=== PATIENT | female | born 1975 | race Caucasian/White ===

== ENCOUNTER 2020-06-14 21:34 | Emergency (ER) | payer OTHER ==
[2020-06-14 22:23] LABS: BASOPHIL 0.6 % (0-2); EOSINOPHIL 2.4 % (0-5); HCT 39.1 % (37.0-47.0); HGB 12.9 g/dl (12.5-16.0); LYMPHOCYTE 31.1 % (15-48); MCH 31.8 pg (25.0-31.0); MCV 96.3 fL (78.0-100.0); MONOCYTE 6.3 % (0-12); MPV 10.6 fL (6.0-9.5); NEUTROPHIL 59.3 % (41-80); NRBC 0; PLT 292 K/uL (150-400); RBC 4.06 M/uL (4.20-5.40); RDW 12.7 % (11.5-14.0); WBC 9.1 K/uL (4.0-10.5)
[2020-06-14 22:34] LABS: INR 1.03 (0.9-1.2); PROTHROMBIN TIME 12.8 SECONDS (11.4-13.6); PTT 25.5 SECONDS (22.2-34.7)
[2020-06-14 22:44] LABS: ALBUMIN 3.2 g/dL (3.4-5.0); BILIRUBIN - TOTAL 0.2 mg/dL (0.2-1.0); BUN/CREAT RATIO (CALC) 27.8 RATIO; CREATININE 0.54 mg/dL (0.51-0.95); GLOBULIN (CALCULATION) 4.3 g/dL; TOTAL PROTEIN 7.5 g/dL (6.4-8.2)
[2020-06-14 22:47] LABS: POTASSIUM 3.6 mmol/L (3.5-5.1)
[2020-06-15] MEDS ORDERED: ACIPHEX20 MG PO (02:21)
[2020-06-15] MEDS ORDERED: XANAX0.5 MG PO (02:35)
== END 2020-06-15 02:40 | disposition home or self-care (01) ==
LOC: FER 21:34
PROVIDERS: Emergency Medicine
DX: R07.89 Other chest pain (principal); I10 Essential (primary) hypertension; Z79.899 Other long term (current) drug therapy; Z88.0 Allergy status to penicillin; Z88.8 Allergy status to other drugs, medicaments and biological substances
CPT/HCPCS: 36415; 71045; 71275; 80053; 84484; 85025; 85610; 85730; 93005; Q9967

== ENCOUNTER 2021-05-09 22:20 | Emergency (ER) | payer OTHER ==
[~2021-05-09 22:20] MED LIST: ACIPHEX20 MG PO; XANAX0.5 MG PO
[2021-05-10 00:43] LABS: BASOPHIL 0.7 % (0-2); EOSINOPHIL 1.9 % (0-5); HCT 40.8 % (37.0-47.0); HGB 13.4 g/dl (12.5-16.0); LYMPHOCYTE 36.7 % (15-48); MCH 32.1 pg (25.0-31.0); MCHC 32.8 g/dL (32.0-36.0); MCV 97.6 fL (78.0-100.0); MONOCYTE 5.7 % (0-12); MPV 10.8 fL (6.0-9.5); NEUTROPHIL 54.8 % (41-80); NRBC 0; PLT 318 K/uL (150-400); RBC 4.18 M/uL (4.20-5.40); RDW 13.2 % (11.5-14.0); WBC 9.6 K/uL (4.0-10.5)
[2021-05-10 00:59] LABS: ALBUMIN 3.5 g/dL (3.4-5.0); BILIRUBIN - TOTAL 0.6 mg/dL (0.2-1.0); BUN/CREAT RATIO (CALC) 15.7 RATIO; CREATININE 0.51 mg/dL (0.51-0.95); MAGNESIUM 2.1 mg/dL (1.8-2.4); POTASSIUM 3.4 mmol/L (3.5-5.1); TOTAL PROTEIN 7.5 g/dL (6.4-8.2)
[2021-05-10] MEDS ORDERED: OMEPRAZOLE40 MG PO (02:36)
== END 2021-05-10 03:06 | disposition home or self-care (01) ==
LOC: FER 22:20
PROVIDERS: Internal Medicine
DX: R07.89 Other chest pain (principal); K21.00 Gastro-esophageal reflux disease with esophagitis, without bleeding; I10 Essential (primary) hypertension; Z88.0 Allergy status to penicillin; Z88.1 Allergy status to other antibiotic agents; Z79.899 Other long term (current) drug therapy
CPT/HCPCS: 36415; 71045; 80053; 83690; 83735; 84145; 84484; 85025; 93005

== ENCOUNTER 2021-12-05 01:22 | Emergency (ER) | payer OTHER ==
[~2021-12-05 01:22] MED LIST changes: +OMEPRAZOLE40 MG PO
[2021-12-05 01:53] LABS: BASOPHIL 0.8 % (0-2); EOSINOPHIL 2.7 % (0-5); HCT 41.1 % (37.0-47.0); HGB 13.5 g/dl (12.5-16.0); LYMPHOCYTE 32.7 % (15-48); MCH 32.4 pg (25.0-31.0); MCHC 32.8 g/dL (32.0-36.0); MCV 98.6 fL (78.0-100.0); MONOCYTE 5.3 % (0-12); MPV 10.6 fL (6.0-9.5); NEUTROPHIL 58.3 % (41-80); NRBC 0; PLT 313 K/uL (150-400); RBC 4.17 M/uL (4.20-5.40); RDW 13.2 % (11.5-14.0); WBC 8.9 K/uL (4.0-10.5)
[2021-12-05 02:20] LABS: ALBUMIN 3.1 g/dL (3.4-5.0); BILIRUBIN - TOTAL 0.3 mg/dL (0.2-1.0); BUN/CREAT RATIO (CALC) 19.1 RATIO; CREATININE 0.47 mg/dL (0.51-0.95); GLOBULIN (CALCULATION) 3.8 g/dL; POTASSIUM 4.3 mmol/L (3.5-5.1); TOTAL PROTEIN 6.9 g/dL (6.4-8.2)
[2021-12-05] MEDS ORDERED: CARAFATE1 GM PO (04:30)
== END 2021-12-05 04:45 | disposition home or self-care (01) ==
LOC: FER 01:22
PROVIDERS: Emergency Medicine
DX: K29.70 Gastritis, unspecified, without bleeding (principal); K44.9 Diaphragmatic hernia without obstruction or gangrene; I10 Essential (primary) hypertension; Z88.0 Allergy status to penicillin; Z88.8 Allergy status to other drugs, medicaments and biological substances; Z88.1 Allergy status to other antibiotic agents
CPT/HCPCS: 36415; 71045; 80053; 84443; 84484; 85025; 85730; 93005; C9113